=== PATIENT | male | born 1990 | race Caucasian/White ===

== ENCOUNTER 2024-01-08 19:37 | Emergency (ER) | payer BC, OTHER ==
[2024-01-08 19:48] VITALS: BP 130/76; PULSE 81; RESP 18; TEMP 98; BMI 27.2
[2024-01-08] MEDS ORDERED: ASPIRIN 81 MG CHEWABLE TABLETS ONE (20:06)
[2024-01-08 20:08] LABS: BASO % 1.1 % (0-2.0); EOS % 1.3 % (0-4.5); HEMATOCRIT 44.6 % (35.4-49); MCH 30.1 pg (25.7-33.7); MCHC 33.6 g/dl (32.0-35.9); MEAN CELL VOLUME 89.7 fl (80-96); MEAN PLT VOLUME 9.1 fl (7.5-11.1); MONO % 7.7 % (3.8-10.2); NEUT % 60.9 % (42.8-82.8); PLATELET COUNT 220 10^3/uL (134-434); RBC 4.97 M/mm3 (4.00-5.60); RDW 14.4 % (11.9-15.9); WHITE BLOOD COUNT 9.1 K/mm3 (4.0-10.0)
[2024-01-08] MEDS: ASPIRIN 81 MG CHEWABLE TABLETS PO ONE (20:12)
[2024-01-08 20:28] LABS: POTASSIUM 4.2 mmol/L (3.5-5.1)
[2024-01-08 20:30] LABS: CALCIUM 9.3 mg/dL (8.5-10.1)
[2024-01-08 20:31] LABS: ALBUMIN 4.1 g/dl (3.4-5.0); BLOOD UREA NITROGEN 14.5 mg/dL (7-18)
[2024-01-08 20:34] LABS: CREATININE 1.3 mg/dL (0.55-1.3)
[2024-01-08 20:35] LABS: BILIRUBIN,TOTAL 0.4 mg/dL (0.2-1); TOT PROT 7.6 g/dl (6.4-8.2)
== END 2024-01-08 21:02 | disposition home or self-care (01) ==
LOC: JER 19:37
DX: R07.9 Chest pain, unspecified (principal); R29.898 Other symptoms and signs involving the musculoskeletal system
CPT/HCPCS: 36415; 71046-TC-FY; 80053; 83735; 84484; 85025; 85379; 93005; 93010; 99285-25